=== PATIENT | female | born 1970 | race Caucasian/White ===

== ENCOUNTER 2018-06-12 14:33 | Inpatient (IN) | payer BC, MEDICARE ==
[~2018-06-12] VITALS: Ht 157.5 cm; Wt 118.4 kg
[~2018-06-12 14:33] MED LIST: ALPRAZOLAM2 MG PO; ALTOPREV PO; AMARYL2 M1 PO; AMITRIPTYLINE H25 M2 PO; ATORVASTATIN CA40 MG PO; BENTYL 20 MG TA20 M1 PO; BYSTOLIC 5 MG5 M1 PO; CLONAZEPAM PO; CYCLOBENZAPRINE5 MG PO; CYMBALTA30 MG PO; DEPAKOTE 250MG250 M1 PO; EFFEXOR PO; EFFEXOR XR150 MG PO; EPIPEN 2-P0.3 MG/0.3 IM; ESKALITH300 MG PO; FISH OIL 1,2001 EAC3 PO; FISH OIL300 MG PO; FLEXERIL PO; FLONASE 0.05%50 MCG NASAL; FLUOXETINE HCL40 MG PO; GEODON60 MG PO; GLUCOPHAGE XR500 MG PO; HUMALOG100 UNIT/1 SUBQ; HYDROCODONE-AP1 EAC6 PO; IBUPROFEN 800800 M1 PO; KETOCONAZOLE60 GM TOP; KLOR-CON 1010 MEQ PO; LAMICTAL PO; LASIX 20 MG TAB20 MG PO; LEVAMIR; LEVEMIR FL100 UNIT/2 SQ; LEVEMIR SUBQ; LEVOTHYROXIN0.075 MG PO; LEVOTHYROXIN0.125 M1 PO; LEVOTHYROXIN0.175 MG PO; LEVOTHYROXINE 0.1 MG PO; LEVOTHYROXINE0.2 M1 PO; LIORESAL 10 MG10 MG PO; LITHIUM CARBON150 MG PO; LITHIUM CARBON300 M7 PO; LOSARTAN-HCTZ1 EACH PO; LOVASTATIN 20 M20 MG PO; METFORMIN HCL500 MG PO; METOCLOPRAMIDE10 MG PO; MYSOLINE50 MG PO; NABUMETONE 750750 M1 PO; NEURONTIN 300300 M1 PO; NORVASC5 MG PO; NOVOLOG100 UNIT/1 SUBQ; OMEGA-31000 M1 PO; ONDANSETRON HCL4 M2 PO; PERCOCET 10-321 EACH PO; PERCOCET 7.5-31 EACH PO; PRIMIDONE50 MG PO; PROAIR HFA8.5 GM PO; PROZAC20 MG; PROZAC20 MG PO; QUETIAPINE FUM400 MG PO; REGLAN 10 MG TA10 MG PO; RELION NOV100 UNIT/2 SUBQ; RIBOFLAVIN400 MG PO; SENNA8.6 MG PO; SEROQUEL 50 MG50 MG PO; SEROQUEL200 MG PO; SINGULAIR 10 MG10 M1; TOPAMAX 100 MG100 MG PO; TOPAMAX200 MG PO; TOPIRAMATE200 MG PO; TRANDATE 200 M200 MG PO; TRIAMCINOLONE A15 G1 TOP; UNICOMPLEX M TA1 TA1 PO; VENLAFAXINE HC150 M1 PO; VENTOLIN HFA 1818 GM INH; VICODIN 5-5001 EACH PO; VITAMIN D2000 UNI1 PO; VOLTAREN GEL 1100 G2 TOP; XANAX XR1 MG PO; XANAX1 MG PO; ZOLOFT50 MG PO
[2018-06-12 14:34] VITALS: BP 152/74
[2018-06-12 15:05] LABS: HEMATOCRIT 38.8 % (37.0-47.0); HEMOGLOBIN 13.1 gm/dL (12.0-15.0); MCH 34.1 pg (26.0-34.0); MCHC 33.6 g/dL (28.0-37.0); MCV 101.3 fL (80.0-100.0); MPV 7.7 fl. (7.2-11.1); NUCLEATED RBCS 0 /100WBC; PLATELET COUNT* 176 thou/uL (150-400); RBC 3.83 mil/uL (4.20-5.00); RDW-CV 14.9 % (10.5-14.5); WBC 11.3 thou/uL (4.0-11.0)
[2018-06-12] MEDS ORDERED: METFORMIN HCL500 MG (15:12)
[2018-06-12] MEDS ORDERED: LEVEMIR100 UNIT/1 (15:12)
[2018-06-12 15:14] LABS: ANION GAP 5 mmol/L (7-16); BUN 8 mg/dL (7-18); CALCIUM 8.6 mg/dL (8.5-10.1); CHLORIDE 102 mmol/L (98-107); CO2 31 mmol/L (21-32); CREATININE 1.1 mg/dL (0.6-1.3); GLUCOSE 179 mg/dL (70-99); POTASSIUM 3.2 mmol/L (3.5-5.1); SODIUM 138 mmol/L (136-145)
[2018-06-12 15:33] LABS: ALBUMIN 2.5 g/dL (3.4-5.0); ALKALINE PHOSPHATASE 61 U/L (46-116); CK-MB MASS 0.9 ng/mL (<0.5-3.6); NT-PRO BRAIN NAT PEPTIDE 2417 pg/mL (<300); SGOT 14 U/L (15-37); SGPT 21 U/L (30-65); TOTAL BILIRUBIN 0.4 mg/dL (<0.1-1.0); TOTAL PROTEIN 6.6 g/dL (6.4-8.2); TROPONIN-I LEVEL <0.06 ng/mL (<0.06)
[2018-06-12 15:40] LABS: APTT 33.2 Seconds (25.0-31.3); INR 1.1; PROTIME 10.7 Seconds (9.20-11.50)
[2018-06-12 15:47] LABS: ABSOLUTE BASOPHILS 0.1 thou/uL (0.0-0.2); ABSOLUTE EOSINOPHILS 0.2 thou/uL (0.0-0.7); ABSOLUTE LYMPHOCYTES 0.6 thou/uL (0.8-5.3); ABSOLUTE MONOCYTES 0.3 thou/uL (0.0-1.2); ABSOLUTE NEUTROPHILS 10.1 thou/uL (1.6-8.1)
[2018-06-12 15:48] LABS: PLATELET ESTIMATE ADEQUATE
[2018-06-12 15:49] LABS: POLYCHROMASIA Occasional
[2018-06-12 16:24] LABS: URINE BILIRUBIN NEGATIVE (Negative); URINE BLOOD NEGATIVE (Negative); URINE CLARITY CLEAR; URINE COLOR YELLOW; URINE GLUCOSE-RANDOM NEGATIVE (Negative); URINE KETONES NEGATIVE (Negative); URINE LEUKOCYTES-REFLEX NEGATIVE (Negative); URINE NITRITE-REFLEX NEGATIVE (Negative); URINE PROTEIN NEGATIVE (Negative); URINE UROBILINOGEN 0.2 E.U./dl (0.2-1.0)
[2018-06-12 17:06] LABS: BE 5.2 mmol/L (-2 to +3); HCO3 30.1 mmol/L (22.0-26.0); PCO2 45.1 mmHg (35.0-45.0); PO2 65.5 mmHg (75.0-100.0); pH 7.442 (7.340-7.450)
[2018-06-12 17:27] LABS: AMP/METHAMP Negative (Negative); BARBITURATES POSITIVE (Negative); BENZODIAZEPINES POSITIVE (Negative); COCAINE Negative (Negative); METHADONE Negative (Negative); OPIATES Negative (Negative); PCP Negative (Negative); THC Negative (Negative)
[2018-06-12 17:28] VITALS: BP 140/65
[2018-06-12 17:29] VITALS: BP 115/57
[2018-06-12 23:43] VITALS: BP 113/56
[2018-06-13 04:10] VITALS: BP 122/69
[2018-06-13 04:49] LABS: HEMATOCRIT 36.4 % (37.0-47.0); HEMOGLOBIN 12.2 gm/dL (12.0-15.0); MCH 34.1 pg (26.0-34.0); MCHC 33.6 g/dL (28.0-37.0); MCV 101.4 fL (80.0-100.0); MPV 8.2 fl. (7.2-11.1); RBC 3.59 mil/uL (4.20-5.00); RDW-CV 14.7 % (10.5-14.5); WBC 9.4 thou/uL (4.0-11.0)
[2018-06-13 05:02] LABS: ALBUMIN 2.2 g/dL (3.4-5.0); CALCIUM 7.8 mg/dL (8.5-10.1); MAGNESIUM 2.1 mg/dL (1.8-2.4); POTASSIUM 3.1 mmol/L (3.5-5.1); TOTAL BILIRUBIN 0.3 mg/dL (<0.1-1.0); TOTAL PROTEIN 6.2 g/dL (6.4-8.2)
--- NOTE | 2018-06-13 10:44 | EKG ---
[place] [address] ELECTROCARDIOGRAM REPORT Name: SD GOLDEN Room: [address] IN [facility]#: [id number] Admission: 06/12/18 Attend Phys: Jasvir Chandler MD Discharge: Date of : 72 Report #: [id number] THIS REPORT FOR: //name// [facility] ED Test Date: 2018-06-12 Test Time: 14:41:04 Pat Name: SD DOSS WAYLON Department: Room: Gender: F Market Director: : 1970 Requested By: Elías Ragsdale Order Number: [id number] MD: Faisal Khan Measurements Intervals [place] Rate: 98 P: 47 [place]: 170 QRS: 21 QRSD: 93 T: 75 QT: 382 QTc: 488 Interpretive Statements Sinus rhythm nonspecific t wave changes Borderline prolonged QT interval Compared to ECG 04/17/2017 03:55:25 No significant changes Electronically Signed On 06-13-2018 10:44:18 CDT by Faisal Khan [email or web address] <ELECTRONICALLY SIGNED> By: Faisal Khan MD, [facility] 06/13/18 1044 1441 [id number] Faisal Khan MD, [facility] /EPI
[2018-06-13 11:59] LABS: CSF GLUCOSE 74 mg/dl (40-70)
[2018-06-13 12:30] LABS: CSF CLARITY CLEAR; CSF COLOR COLORLESS; CSF RBC 3 /mm3; CSF WBC 1 /mm3 (0-10); VOLUME 14 ml
[2018-06-13 12:39] VITALS: BP 126/68
[2018-06-13 16:36] VITALS: BP 103/79
[2018-06-13 19:50] VITALS: BP 153/77
[2018-06-13 23:45] VITALS: BP 135/67
[2018-06-14 04:00] VITALS: BP 141/70
[2018-06-14 07:07] LABS: HEMATOCRIT 37.9 % (37.0-47.0); HEMOGLOBIN 12.8 gm/dL (12.0-15.0); MCH 34.3 pg (26.0-34.0); MCHC 33.7 g/dL (28.0-37.0); MCV 101.9 fL (80.0-100.0); MPV 7.8 fl. (7.2-11.1); RBC 3.72 mil/uL (4.20-5.00); RDW-CV 14.9 % (10.5-14.5); WBC 8.5 thou/uL (4.0-11.0)
[2018-06-14 07:13] LABS: CALCIUM 8.4 mg/dL (8.5-10.1); CREATININE 0.9 mg/dL (0.6-1.3); MAGNESIUM 2.2 mg/dL (1.8-2.4); POTASSIUM 4.3 mmol/L (3.5-5.1)
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
[2018-06-14 08:00] VITALS: BP 137/73
[2018-06-14 11:45] VITALS: BP 137/90
[2018-06-14 15:48] VITALS: BP 98/50
[2018-06-14 20:00] VITALS: BP 127/77
[2018-06-15] VITALS: BP 124/63
[2018-06-15 04:00] VITALS: BP 134/77
[2018-06-15 04:48] LABS: HEMATOCRIT 38.5 % (37.0-47.0); HEMOGLOBIN 12.9 gm/dL (12.0-15.0); MCH 34.3 pg (26.0-34.0); MCHC 33.5 g/dL (28.0-37.0); MCV 102.4 fL (80.0-100.0); MPV 7.5 fl. (7.2-11.1); RBC 3.76 mil/uL (4.20-5.00); RDW-CV 14.7 % (10.5-14.5)
[2018-06-15 08:00] VITALS: BP 146/78
[2018-06-15 12:00] VITALS: BP 105/69
[2018-06-15 15:52] VITALS: BP 139/79
[2018-06-15 19:50] VITALS: BP 142/83
[2018-06-16] VITALS: BP 110/61
[2018-06-16 04:00] VITALS: BP 142/48
[2018-06-16 08:00] VITALS: BP 137/58
[2018-06-16 12:19] VITALS: BP 116/89
[2018-06-16] MEDS ORDERED: SYNTHROID50 MCG PO (12:37)
[2018-06-16] MEDS ORDERED: ZARONTIN250 MG PO (12:37)
[2018-06-16] MEDS ORDERED: PROZAC20 MG PO (12:37)
[2018-06-16] MEDS ORDERED: ZYPREXA2.5 MG PO (12:37)
[2018-06-16] MEDS ORDERED: AZITHROMYCIN 2250 MG PO (12:37)
[2018-06-16] MEDS ORDERED: CEFUROXIME500 MG PO (12:37)
[2018-06-16] MEDS ORDERED: NEURONTIN 300300 M1 PO (12:37)
[2018-06-16] MEDS ORDERED: TOPAMAX 25 MG T25 M1 PO (12:37)
[2018-06-16 14:09] VITALS: BP 116/89
[2018-06-21 10:54] LABS: PRIMIDONE 2.7
--- NOTE | 2018-06-21 12:17 | EEG ---
[address] [address] EEG STUDY REPORT Name: SD GOLDEN Room: [address]#: [id number] Admission: 06/12/18 Attend Phys: Jasvir Chandler MD Discharge: 06/16/18 Date of : 72 Report #: [id number] THIS REPORT FOR: //name// CC: Ketty Chandler DATE OF SERVICE: 06/13/2018 This patient is being evaluated for altered mental status. EEG was done by placing the electrodes by standard 10-20 system of electrode placement. Both referential and sequential montages were used for recording. Background activity in this patient's EEG is about 6-7 Hz and 30 microvolt. It is intermixed with a lot of artifact. Photic stimulation is unremarkable. The patient appeared to be asleep during part of this EEG and that is associated with bilateral slowing and vertex sharp waves. Throughout the records, no active epileptiform activity was noticed. IMPRESSION: This is an abnormal EEG because it is disorganized and poorly formed. That is a nonspecific abnormality, which can occur with encephalopathy, dementia, effect of psychotropic medication, etc. Clinical correlation is recommended. <ELECTRONICALLY SIGNED> By: Kobi Carrillo MD 06/21/18 1217 1520 [id number] Carrillo MD /taylor
--- NOTE | 2018-06-21 12:17 | CON ---
[address] [address] CONSULTATION Name: SD GOLDEN Room: [address] IN [facility].#: [id number] Admission: 06/12/18 Attend Phys: Jasvir Chandler MD Discharge: 06/16/18 Date of : 72 Report #: [id number] THIS REPORT FOR: //name// CC: Ketty Chandler DATE OF SERVICE: 06/13/2018 HISTORY OF PRESENT ILLNESS: This is a 47-year-old female patient who was admitted yesterday evening with fever as well as altered mental status. Routine Neurology consult was requested last evening to determine any neurological etiology for the patient's symptoms. I reviewed the patient's prior records also. This patient provides some history, but the history is not very reliable. It looks like this patient has been sick for 2-3 days prior to admission. She has difficulty in ambulation and she cannot walk. But in the hospital, it was noted she was repeating the same thing again and again. One of the note indicate that she was alert and oriented x 3, but rest of the notes indicate that she was repeating herself. Her fever has improved, but her confusion continue. REVIEW OF SYSTEMS: I reviewed the patient's records. It would appear that this patient has been admitted here multiple times. At one time, she was admitted with lithium toxicity. The other time she was unresponsive and progressively became better, but it took her much longer to become better. She is on multiple psychiatric medications for what has been described as a posttraumatic stress disorder. She had hysterectomy in the past. She does not know when it was done. Her fever has come down with antibiotics. She was having some cough, but how long fever is going on is not clear. Her 14-point review of system in the past has been positive for numerous medical problems. She has altered mental status. She has been admitted with kidney problems. She had weakness in the past. At one time, she was admitted with pretty significant migraine and she was nauseous and was unable to take her medication. She has never been able to do an MRI because she said she is claustrophobic. I told her that we should do an MRI, but she said she will not do it because she is too claustrophobic. This was her relevant 14-point review of systems. PAST MEDICAL HISTORY: Positive for tremor as well as jerking. She is still having jerking. FAMILY HISTORY: Negative for congenital epilepsy. SOCIAL HISTORY: She said she does not drink any alcohol. PHYSICAL EXAMINATION: Indicate that she is alert. She is responsive, but she is very sleepy. She wakes up. When she wakes up, she does not know what month it is and her memory and fund of knowledge is very poor. Cranial nerve [facility] [address] [place] [address] CONSULTATION Name: SD GOLDEN Room: [address] IN [facility]#: [id number] Admission: 06/12/18 Attend Phys: Jasvir Chandler MD Discharge: 06/16/18 Date of : 72 Report #: [id number] examination 2-12 looks mostly unremarkable. There is a slight asymmetry of the nasolabial fold, but that may be her baseline. She moves all 4 extremities. She does appear to be weak in all 4 extremities more so in the right lower extremity, but again it is not sure what her effort is. Reflexes are diminished, but she may not be relaxing. I tried to do the position sense on her. She did not cooperate. Clinically, she does not have any meningeal sign. She is a morbidly obese lady, who is having moderate amount of respiratory difficulty. Her pulses at least in the right lower extremity are palpable. Blood pressure is 122/69, respirations 18, pulse is 86, temperature is 85. CT scan was okay. IMPRESSION: Very difficult to form in this patient. She is having multiple issues. She is hypoxic and her pO2 is low, pCO2 is high. She is on multiple medications and is not sure how she is taking her medication. Some of the medication she is on also has respiratory suppressing effect, especially primidone and she is on a heavy dose for that. She does have some infection. Initial concern was DIRECTOR OF ACQUISITIONS infection. But since her fever has gone down and she has responded, it is unlikely that it is DIRECTOR OF ACQUISITIONS infection, but cannot be fully excluded. She is having some twitching and because of that I need to exclude there is any seizures especially because she is on so much medication, but seizures are considered unlikely just because she is on primidone, which has a pretty good anticonvulsant effect and she is on heavy dose of it. RECOMMENDATIONS: 1. We will check a phenobarbital level since she is on primidone and if possible, I will also check the primidone level. 2. I will get an EEG done. 3. I will suggest an ID consult in this patient. 4. I will discuss this patient with you. Initially, she had significant neurological symptoms. She still has some and she is scheduled for spinal tap and I discussed the indication, potential complication, and alternatives of that with her. She is okay with proceeding with it and it may not be bad idea to do that because the risk is relatively small and she may have some outside etiologies like Guillain-Calumet syndrome. But I agree with your assessment that her biggest problem is polypharmacy and she needs to work on simplifying that regimen, but I suspect she also needs those too because she apparently has a pretty significant psychiatric disorder. So she needs to work with her psychiatrist to find a happy medium for that and work with them. More than 50 minutes of time was spent taking care of this patient today and majority of that time was spent counseling this patient. Her MCV is high. Because of that, I will check a B12 [place] [address] CONSULTATION Name: SD GOLDEN Room: [address]#: [id number] Admission: 06/12/18 Attend Phys: Jasvir Chandler MD Discharge: 06/16/18 Date of : 72 Report #: [id number] Thank you very much for this referral. <ELECTRONICALLY SIGNED> By: Kobi Carrillo MD 06/21/18 1217 0712 [id number] Carrillo MD /nt
== END 2018-06-16 15:22 | disposition home or self-care (01) | DRG 871 ==
LOC: M.ERS 14:33 → M.TBA-ER 15:59 → M.2W 15:59 → M.TBA-ER 17:31 → M.2W 17:44
PROVIDERS: Emergency Medicine; Psychiatry & Neurology Neuromuscular Medicine; ADMIT Internal Medicine
PROC: B01B1ZZ Fluoroscopy of Spinal Cord using Low Osmolar Contrast (ICD-10-PCS; principal; 2018-06-13)
PROC: 009U3ZX Drainage of Spinal Canal, Percutaneous Approach, Diagnostic (ICD-10-PCS; principal; 2018-06-13)
DX: A41.9 Sepsis, unspecified organism (principal); J18.9 Pneumonia, unspecified organism; G92 Toxic encephalopathy; J44.0 Chronic obstructive pulmonary disease with (acute) lower respiratory infection; I13.0 Hypertensive heart and chronic kidney disease with heart failure and stage 1 through stage 4 chronic kidney disease, or unspecified chronic kidney disease; N18.2 Chronic kidney disease, stage 2 (mild); Z68.42 Body mass index [BMI] 45.0-49.9, adult; I50.30 Unspecified diastolic (congestive) heart failure; T44.3X1A Poisoning by other parasympatholytics [anticholinergics and antimuscarinics] and spasmolytics, accidental (unintentional), initial encounter; E11.22 Type 2 diabetes mellitus with diabetic chronic kidney disease; F43.10 Post-traumatic stress disorder, unspecified; E78.00 Pure hypercholesterolemia, unspecified; G47.33 Obstructive sleep apnea (adult) (pediatric); I65.29 Occlusion and stenosis of unspecified carotid artery; F17.210 Nicotine dependence, cigarettes, uncomplicated; M51.86 Other intervertebral disc disorders, lumbar region; M19.90 Unspecified osteoarthritis, unspecified site; F41.9 Anxiety disorder, unspecified; F31.9 Bipolar disorder, unspecified; E66.01 Morbid (severe) obesity due to excess calories; E87.6 Hypokalemia; E03.9 Hypothyroidism, unspecified; Z79.2 Long term (current) use of antibiotics; Z79.899 Other long term (current) drug therapy; Y92.89 Other specified places as the place of occurrence of the external cause; Z88.5 Allergy status to narcotic agent; Z88.8 Allergy status to other drugs, medicaments and biological substances; Z91.030 Bee allergy status; Z91.040 Latex allergy status; Z79.4 Long term (current) use of insulin; Z90.49 Acquired absence of other specified parts of digestive tract; Z90.711 Acquired absence of uterus with remaining cervical stump; Z79.82 Long term (current) use of aspirin

== ENCOUNTER 2018-11-20 13:32 | Emergency (ER) | payer BC, MEDICARE ==
[~2018-11-20] VITALS: Ht 157.5 cm; Wt 93.0 kg
[~2018-11-20 13:32] MED LIST changes: +AZITHROMYCIN 2250 MG PO; +CEFUROXIME500 MG PO; +LEVEMIR100 UNIT/1; +SYNTHROID50 MCG PO; +TOPAMAX 25 MG T25 M1 PO; +ZARONTIN250 MG PO; +ZYPREXA2.5 MG PO
[2018-11-20] MEDS ORDERED: PERCOCET 7.5-31 EACH PO (13:39)
[2018-11-20] MEDS ORDERED: PHENERGAN 25 MG25 M1 PO (13:40)
[2018-11-20] MEDS ORDERED: TOPROL XL100 MG PO (13:40)
[2018-11-20] MEDS ORDERED: LEVOXYL200 MCG PO (13:41)
[2018-11-20] MEDS ORDERED: CYMBALTA30 MG PO (13:43)
[2018-11-20] MEDS ORDERED: COLACE 100 MG100 MG PO (13:43)
[2018-11-20] MEDS ORDERED: CETIRIZINE HCL5 MG PO (13:45)
[2018-11-20] MEDS ORDERED: ZYPREXA5 MG PO (13:45)
[2018-11-20] MEDS ORDERED: CYTOMEL 5MCG TA5 MC1 PO (13:46)
[2018-11-20] MEDS ORDERED: MOBIC15 MG PO (13:47)
[2018-11-20 14:11] LABS: ABSOLUTE BASOPHILS 0.1 thou/uL (0.0-0.2); ABSOLUTE EOSINOPHILS 0.2 thou/uL (0.0-0.7); ABSOLUTE LYMPHOCYTES 2.5 thou/uL (0.8-5.3); ABSOLUTE MONOCYTES 0.7 thou/uL (0.0-1.2); ABSOLUTE NEUTROPHILS 8.5 thou/uL (1.6-8.1); BASOPHILS 0.7 %; EOSINOPHILS 1.9 %; HEMATOCRIT 48.9 % (37.0-47.0); HEMOGLOBIN 16.9 gm/dL (12.0-15.0); LYMPHOCYTES 20.8 %; MCHC 34.6 g/dL (28.0-37.0); MCV 95.4 fL (80.0-100.0); MONOCYTES 5.7 %; MPV 8.2 fl. (7.2-11.1); NUCLEATED RBCS 0 /100WBC; PLATELET COUNT* 270 thou/uL (150-400); POLYS 70.9 %; RBC 5.13 mil/uL (4.20-5.00)
[2018-11-20 14:20] LABS: URINE BILIRUBIN NEGATIVE (Negative); URINE BLOOD NEGATIVE (Negative); URINE CLARITY CLEAR; URINE COLOR YELLOW; URINE GLUCOSE-RANDOM NEGATIVE (Negative); URINE KETONES NEGATIVE (Negative); URINE LEUKOCYTES-REFLEX TRACE (Negative); URINE NITRITE-REFLEX NEGATIVE (Negative); URINE PROTEIN NEGATIVE (Negative); URINE UROBILINOGEN 0.2 E.U./dl (0.2-1.0)
[2018-11-20 14:23] LABS: POTASSIUM 4.1 mmol/L (3.5-5.1)
[2018-11-20 14:26] LABS: BACTERIA-REFLEX 1-9 Few /HPF (None Seen); SQUAMOUS 0-3 Few /LPF (0-3); URINE RBC 0-2 Rare /HPF (0-2); URINE WBC-REFLEX 0-5 Rare /HPF (0-5)
[2018-11-20 14:27] LABS: CASTS None Seen /LPF (None Seen); CRYSTALS None Seen /LPF (None Seen); FINE GRANULAR CASTS 0-3 Few /LPF (None Seen); MUCUS 0-3 Light strn/LPF (None Seen)
[2018-11-20 14:36] LABS: ALBUMIN 3.8 g/dL (3.4-5.0); TOTAL BILIRUBIN 0.3 mg/dL (<0.1-1.0); TOTAL PROTEIN 7.4 g/dL (6.4-8.2)
[2018-11-20 14:39] LABS: AMP/METHAMP Negative (Negative); BARBITURATES POSITIVE (Negative); BENZODIAZEPINES POSITIVE (Negative); COCAINE Negative (Negative); METHADONE Negative (Negative); OPIATES Negative (Negative); PCP Negative (Negative); THC Negative (Negative)
[2018-11-20 14:41] LABS: ACETAMINOPHEN < 2 ug/mL (10-30); ALCOHOL < 10 mg/dL (<10); SALICYLATE 7.3 mg/dL (2.8-20.0)
[2018-11-21 15:53] VITALS: BP 143/73
== END 2018-11-21 15:58 ==
LOC: M.ERS 13:32
PROVIDERS: Emergency Medicine Emergency Medical Services
DX: R45.851 Suicidal ideations (principal); R19.7 Diarrhea, unspecified; G43.909 Migraine, unspecified, not intractable, without status migrainosus; J45.909 Unspecified asthma, uncomplicated; M19.90 Unspecified osteoarthritis, unspecified site; F41.9 Anxiety disorder, unspecified; F31.9 Bipolar disorder, unspecified; E03.9 Hypothyroidism, unspecified; E78.00 Pure hypercholesterolemia, unspecified; G47.33 Obstructive sleep apnea (adult) (pediatric); J44.9 Chronic obstructive pulmonary disease, unspecified; E66.01 Morbid (severe) obesity due to excess calories; Z68.37 Body mass index [BMI] 37.0-37.9, adult; I13.0 Hypertensive heart and chronic kidney disease with heart failure and stage 1 through stage 4 chronic kidney disease, or unspecified chronic kidney disease; E11.22 Type 2 diabetes mellitus with diabetic chronic kidney disease; N18.9 Chronic kidney disease, unspecified; I50.30 Unspecified diastolic (congestive) heart failure; Z79.4 Long term (current) use of insulin; Z90.49 Acquired absence of other specified parts of digestive tract; Z90.711 Acquired absence of uterus with remaining cervical stump; Z98.890 Other specified postprocedural states; Z79.899 Other long term (current) drug therapy; Z91.040 Latex allergy status; Z88.8 Allergy status to other drugs, medicaments and biological substances; Z91.030 Bee allergy status